=== PATIENT | male | born 1970 | race Caucasian/White ===

== ENCOUNTER 2017-05-30 10:55 | Emergency (ER) | payer OTHER ==
[~2017-05-30] VITALS: Ht 172.7 cm; Wt 74.8 kg
[~2017-05-30 10:55] MED LIST: CEPHALEXIN500 M1 PO; NORCO 5-325 TA1 EACH PO
[2017-05-30] MEDS ORDERED: Motrin,Rufen800 MG PO (11:17)
[2017-05-31] MEDS ORDERED: KEFLEX500 M1 PO (10:36)
[2017-05-31] MEDS ORDERED: SILVADENE,SSD C50 GM T (10:36)
== END 2017-05-30 11:31 | disposition home or self-care (01) ==
LOC: ED 10:55
DX: T22.252A Burn of second degree of left shoulder, initial encounter (principal); F10.10 Alcohol abuse, uncomplicated; X02.8XXA Other exposure to controlled fire in building or structure, initial encounter; Y93.89 Activity, other specified; Y92.89 Other specified places as the place of occurrence of the external cause; Y99.8 Other external cause status

== ENCOUNTER 2017-05-31 10:29 | Emergency (ER) | payer OTHER ==
[~2017-05-31] VITALS: Ht 175.2 cm; Wt 74.8 kg
[~2017-05-31 10:29] MED LIST changes: +Motrin,Rufen800 MG PO
[2017-05-31] MEDS ORDERED: KEFLEX500 M1 PO (10:36)
[2017-05-31] MEDS ORDERED: SILVADENE,SSD C50 GM T (10:36)
== END 2017-05-31 10:59 | disposition home or self-care (01) ==
LOC: ED 10:29
DX: T22.252D Burn of second degree of left shoulder, subsequent encounter (principal); Z79.899 Other long term (current) drug therapy; X08.8XXD Exposure to other specified smoke, fire and flames, subsequent encounter

== ENCOUNTER → 2024-06-12 | Outpatient (CLI) | payer OTHER ==
[~2024-06-12] MED LIST changes: +KEFLEX500 M1 PO; +SILVADENE,SSD C50 GM T
== END | disposition home or self-care (01) ==
LOC: US 07:18
PROVIDERS: ATTEND Internal Medicine
DX: K76.0 Fatty (change of) liver, not elsewhere classified (principal); N28.1 Cyst of kidney, acquired; R10.31 Right lower quadrant pain